=== PATIENT | female | born 1980 | race African-American/Black ===

== ENCOUNTER 2017-06-18 17:26 | Emergency (ER) | payer OTHER ==
[~2017-06-18] VITALS: Ht 142.2 cm; Wt 98.6 kg
[2017-06-18] MEDS ORDERED: HYDR12.55 PO (17:46)
[2017-06-18 20:25] LABS: BASO % 0.5 % (0.0-1.0); EOS # 0.1 10^3/uL (0.0-0.50); EOS % 1.7 % (0.0-3.0); IMMATURE GRANULOCYTE % 0.3 % (0-0); MEAN CORPUSCULAR HEMOGLOBIN 26.2 pg (27.0-33.0); MEAN CORPUSCULAR HGB CONC 32.7 g/dl (32.0-36.5); MEAN CORPUSCULAR VOLUME 80.2 fl (80.0-96.0); MONO # 0.4 10^3/uL (0.0-0.8); MONO % 5.7 % (0.0-5.0); NEUTROPHILS # 4.2 10^3/uL (1.8-7.7); NEUTROPHILS % 53.8 % (36.0-66.0); PLATELET COUNT, AUTOMATED 313 10^3/uL (150-450); RED CELL DISTRIBUTION WIDTH 13.3 % (11.5-14.5); WHITE BLOOD COUNT 7.8 10^3/uL (4.0-10.0)
[2017-06-18 21:11] LABS: HCG, SERUM QUANTITATIVE 21736 MIU/ML
--- NOTE | 2017-06-18 21:50 | REPUSA ---
Clinical history: Pain. Findings: Real-time transabdominal and transvaginal ultrasound images of the pelvis were obtained. An anteverted uterus is noted, measuring 14.1 x 5.5 x 9.1 cm. The uterus demonstrates normal echotextur e and echogenicity. However, there is a uterine fibroid measuring 3.8 x 4.4 x 3.7 cm. There is no low dence of it intrauterine gestation at this time. The right ovary measures 3.3 x 2.2 x 1.7 cm. The lef t ovary measures 3.2 x 1.9 x 3.5 cm. There is a simple cyst in the left ovary measuring 1.6 cm. There is a complex left adnexal mass demonstrated, which demonstrate internal vascularity, measuring 2.5 x 2.6 x 2.9 cm. Color Doppler flow is seen within both ovaries. There is no evidence of free fluid. Impression: 1. Complex mass in the left adnexa, suspicious for an ectopic . No evidence of free fluid. 2. Simple left ovarian cyst. 3. No evidence of an intrauterine . ER physician was notified of these findings at 9:42 PM on 06/18/2017.
[2017-06-18] MEDS ORDERED: HYDR25TAB PO (22:00)
[2017-06-18] MEDS ORDERED: POTA20TA PO (22:00)
[2017-06-18 23:11] LABS: ALBUMIN 3.4 GM/DL (3.2-5.2); ALBUMIN/GLOBULIN RATIO 0.97 (1.00-1.93); ALKALINE PHOSPHATASE 70 U/L (45-117); ALT/SGPT 24 U/L (12-78); ANION GAP 13 MEQ/L (8-16); AST/SGOT 11 U/L (15-37); BILIRUBIN,TOTAL 0.5 MG/DL (0.2-1.0); BLOOD UREA NITROGEN 11 MG/DL (7-18); CALCIUM LEVEL 9.2 MG/DL (8.5-10.1); CARBON DIOXIDE LEVEL 25 MEQ/L (21-32); CHLORIDE LEVEL 101 MEQ/L (98-107); CREATININE FOR GFR 0.68 MG/DL (0.55-1.02); GLOMERULAR FILTRATION RATE > 60.0 (>60); GLUCOSE, FASTING 86 MG/DL (70-105); POTASSIUM SERUM 3.6 MEQ/L (3.5-5.1); SODIUM LEVEL 139 MEQ/L (136-145); TOTAL PROTEIN 6.9 GM/DL (6.4-8.2)
[2017-06-18 23:38] VITALS: BP 140/72
[2017-06-19] MEDS ORDERED: METHOTREXATE 50MG/2ML VIAL (J9260 PER 50MG) IM ONE ×2 (00:30)
--- NOTE | 2017-06-19 00:38 | IPNPDOC ---
Text Note Date of Service The patient was seen on 06/19/17. NOTE Lucille is a 37yo with LMP 17 April 2017 who was found to have ectopic yesterday (06/18) based on inappropriately rising beta hcg and ultrasound. This was a planned achieved via letrazole. She was seen in clinic on Jun and found to have no visible intrauterine gestational sac on ultrasound. She had a beta hcg on Jun of 34,069 at [facility]. She then followed up with repeat hcg Jun which was 32,453 and repeat ultrasound at [facility] described "absence of an intrauterine gestation and complex left adnexal mass (1.5x2.6x2.2cm), suspected left tubular ectopic ". During this entire time Lucille has been asymptomatic: she denies any and all pelvic/abdominal pain/cramping, and has had no vaginal spotting. No nausea/ vomiting. No physical complaints whatsoever. She presented to the ER since her ultrasound read returned after clinic hours with plan per Dr. Dodge to proceed with methotrexate administration to treat ectopic . He discussed all benefits/risks/alternatives and need for close follow-up of beta hcg levels until undetectable with the patient. When she arrived at the ER, CBC/CMP/Rh lab tests were drawn and she underwent another ultrasound which confirmed previous findings (her beta hcg was 21k by [facility], but the difference is likely due to different lab processing). 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 An anteverted uterus is noted, measuring 14.1 x 5.5 x 9.1 cm. The uterus demonstrates normal echotexture and echogenicity. However, there is a uterine fibroid measuring 3.8 x 4.4 x 3.7 cm. There is no evidence of it intrauterine gestation at this time. The right ovary measures 3.3 x 2.2 x 1.7 cm. The left ovary measures 3.2 x 1.9 x 3.5 cm. There is a simple cyst in the left ovary measuring 1.6 cm. There is a complex left adnexal mass demonstrated, which demonstrate internal vascularity, measuring 2.5 x 2.6 x 2.9 cm. Color Doppler flow is seen within both ovaries. There is no evidence of free fluid. Impression: 1. Complex mass in the left adnexa, suspicious for an ectopic . No evidence of free fluid. 2. Simple left ovarian cyst. 3. No evidence of an intrauterine . ER physician was notified of these findings at 9:42 PM on 06/18/2017. Assessment: Lucille is a 37yo with suspected left ectopic based on inappropriately rising beta hcg and ultrasound findings of complex left adnexal mass with no intrauterine observed, completely stable with no symptoms of pain or bleeding, no abdominal pain on exam with palpation, and normal vital signs. Normal lab values, previously counseled on methotrexate and desires to proceed with the injection. Plan: -Patient counseled and consented again by me for methotrexate. She understands the risks, to include possible continued ectopic that may require surgery to address or even rupture of ectopic that may require emergency surgery to address. She knows to avoid alcohol, NSAIDs and intercourse as well as vitamins containing folic acid. [facility] consent form signed as well as Tasneem Martinez methotrexate flow sheet/consent form. Patient given information sheet to take home. -Dosage calculated: 56in, 217lb, BSA 1.97 meters squared. With dosing 50mg/ meter squared, pt requires dose of 98mg IM x1 to be given by CONSULTING PSYCHIATRIST -Patient understands she will need to go to [facility] lab on Wednesday and Wednesday of next week for repeat hcg -She will be scheduled with appropriate follow-up in our clinic -Given strict return precautions for pain, vaginal bleeding, fainting, dizziness -All questions answered to patient's apparent satisfaction Dr. Francie Anderson MD ([facility]) VS,Joslyn I+O VS, Jean-Pierre Jorgensen+O Laboratory Tests 06/18/17 20:14 Red Blood Count 4.50, Mean Corpuscular Volume 80.2, Mean Corpuscular Hemoglobin 26.2 L, Mean Corpuscular Hemoglobin Concent 32.7, Red Cell Distribution Width 13.3, Neutrophils (%) (Auto) 53.8, Lymphocytes (%) (Auto) 38.0, Monocytes (%) ( Auto) 5.7 H, Eosinophils (%) (Auto) 1.7, Basophils (%) (Auto) 0.5, Neutrophils # (Auto) 4.2, Lymphocytes # (Auto) 3.0, Monocytes # (Auto) 0.4, Eosinophils # ( Auto) 0.1, Basophils # (Auto) 0.0, Calcium Level 9.2, Aspartate Amino Transf ( AST/SGOT) 11 L, Alanine Aminotransferase (ALT/SGPT) 24, Alkaline Phosphatase 70 , Total Bilirubin 0.5, Total Protein 6.9, Albumin 3.4 Vital Signs Date Time Temp Pulse Resp B/P (MAP) Pulse Ox O2 Delivery O2 Flow Rate FiO2 06/18/17 23:38 98.9 68 18 140/72 (94) 100 Room Air FRANCIE ANDERSON MD Jun 19, 2017 00:38
== END 2017-06-19 00:51 | disposition home or self-care (01) ==
LOC: M ED 17:26
DX: O00.90 Unspecified ectopic pregnancy without intrauterine pregnancy (principal); O10.919 Unspecified pre-existing hypertension complicating pregnancy, unspecified trimester; Z79.899 Other long term (current) drug therapy; Z3A.00 Weeks of gestation of pregnancy not specified
CPT/HCPCS: 76801; 76817; 80053; 84702; 85025; 86901; 93976; 96372; 99283; J9260